=== PATIENT | male | born 1940 | race Caucasian/White ===

== ENCOUNTER 2019-09-05 03:04 | Inpatient (IN) ==
[2019-09-05] MEDS ORDERED: Morphine Sulfate 2 MG/ML SYRINGE IVP ONE (03:09)
[2019-09-05 03:30] LABS: Bilirubin,Urine Negative (Negative); Blood,Urine Negative (Negative); Clarity,Urine Cloudy (Clear); Color,Urine Yellow (Yellow); Glucose,Urine (UA) Normal (Normal); Ketones,Urine Negative (Negative); Leukocyte Esterase,Urine Large (Negative); Nitrite,Urine Negative (Negative); Protein,Urine Negative (Neg-Trace); Specific Gravity,Urine 1.021 (1.010-1.025); Urobilinogen,Urine Normal (Normal)
[2019-09-05 03:32] LABS: Bacteria,Urine Many per hpf (None-Few); Hyaline Casts,Urine Few per lpf (None-Few); Squamous Epithelial Cell,Urine Few per lpf (None-Few); WBC,Urine TNTC per hpf (0-3)
[2019-09-05] MEDS ORDERED: cefTRIAXone 1,000 MG in Water for inj. (sterile) 10 ML IVP ONE (03:35)
[2019-09-05 03:44] LABS: Basophils % 0.4 %; Eosinophils # 0.3 K/mcL (0.0-0.6); Eosinophils % 3.3 %; Hemoglobin 10.6 g/dL (12.9-16.9); Immature Granulocytes % 0.4 % (0-4); Lymphocytes # 1.9 K/mcL (0.6-4.6); Lymphocytes % 20.8 %; Mean Corpuscular HGB Conc 31.2 g/dL (31.6-35.5); Mean Corpuscular Volume 92.9 fL (83.0-100.0); Mean Platelet Volume 9.9 fL (9.4-12.4); Monocytes # 0.7 K/mcL (0.0-1.3); Monocytes % 7.3 %; Platelet Count 243 K/mcL (140-400); Red Blood Count 3.66 M/mcL (4.19-5.50); Segmented Neutrophils % 67.8 %; White Blood Count 8.9 K/mcL (4.3-11.1)
[2019-09-05 04:06] LABS: Alanine Aminotransferase 13 Units/L (7-52); Albumin/Globulin Ratio 1.4 (1.1-2.2); Alkaline Phosphatase 80 Units/L (34-104); Aspartate Amino Transferase 18 Units/L (13-39); BUN/Creatinine Ratio 26 (6-26); Bilirubin,Total 0.4 mg/dL (0.3-1.0); Blood Urea Nitrogen 27 mg/dL (8-23); Calcium 9.3 mg/dL (8.6-10.3); Carbon Dioxide 26 mEq/L (23-29); Chloride 104 mEq/L (98-107); Globulin 2.9 g/dL (2.4-3.5); Glucose 150 mg/dL (70-105); Osmolality,Calculated 296 (280-300); Potassium 3.8 mEq/L (3.5-5.1); Sodium 139 mEq/L (136-145); Total Protein 6.9 g/dL (6.4-8.9); Troponin I < 0.03 ng/mL (< 0.04); eGFR For African Americans > 60 (> 60); eGFR For Non-African Americans > 60 (> 60)
[2019-09-05] MEDS ORDERED: Naloxone 0.4 MG/ML INJ IVP PRN ×3 (04:49→17:23)
[2019-09-05] MEDS ORDERED: Acetaminophen 325 MG TABLET PO PRN (04:49)
[2019-09-05 05:16] LABS: % Iron Saturation 5 % (20-55); Iron 24 mcg/dL (65-175); Magnesium 1.9 mg/dL (1.6-2.6); Phosphorous 3.2 mg/dL (2.7-4.5); Transferrin 318 mg/dL (203-362)
[2019-09-05 05:21] LABS: Prothrombin Time 11.7 Seconds (9.4-12.1)
[2019-09-05] MEDS: 0.9 % Sodium Chloride 1,000 ML IVC SCH (05:22)
[2019-09-05] MEDS ORDERED: *HR* HYDROmorphone (PF) 1 MG/ML SYRINGE IVP ONE (05:27)
[2019-09-05 05:30] LABS: Thyroid Stimulating Hormone 2.224 mcIU/mL (0.340-5.600)
[2019-09-05] MEDS ORDERED: *HR* HYDROmorphone (PF) 1 MG/ML SYRINGE IVP PRN (05:46)
[2019-09-05 05:51] LABS: Folate 18.8 ng/mL (3.0-16.0)
[2019-09-05] MEDS ORDERED: *HR* Heparin 5,000 UNIT/ML VIAL SQ SCH (06:00)
[2019-09-05] MEDS ORDERED: risperiDONE 0.25 MG TABLET PO SCH (09:00)
[2019-09-05] MEDS ORDERED: Cholecalciferol (D-3) 1,000 UNIT (25MCG) TABLET PO SCH (09:00)
[2019-09-05] MEDS ORDERED: Aspirin Enteric Coated 81 MG Tablet PO SCH (09:00)
[2019-09-05] MEDS ORDERED: Famotidine 20 MG TABLET PO SCH (09:00)
[2019-09-05] MEDS ORDERED: Cyanocobalamin (B-12) 1,000 MCG TABLET PO SCH (09:00)
[2019-09-05] MEDS ORDERED: Magnesium Oxide 400 MG TABLET PO SCH (09:00)
[2019-09-05 09:19] LABS: Hematocrit 31.2 % (37.5-50.1); Hemoglobin 9.7 g/dL (12.9-16.9)
[2019-09-05] MEDS ORDERED: *HR* FentaNYL (PF) 100 MCG/2 ML VIAL ONE (14:04)
[2019-09-05] MEDS ORDERED: *HR* Propofol 200 MG/20 ML VIAL IVP ONE (14:04)
[2019-09-05] MEDS ORDERED: Lidocaine -MPF 2% 2 ML VIAL ONE (14:05)
[2019-09-05] MEDS ORDERED: Ondansetron 4 MG/2 ML VIAL ONE (14:06)
[2019-09-05] MEDS ORDERED: Dexamethasone 4 MG/ML VIAL ONE (14:06)
[2019-09-05] MEDS ORDERED: Famotidine 20 MG/2 ML VIAL ONE (14:08)
[2019-09-05] MEDS ORDERED: Acetaminophen IV 1,000 MG/100 ML INFUS..BTL ONE (14:08)
[2019-09-05] MEDS ORDERED: Lidocaine HCL 4 ML Topical Solution (Laryng-O-Jet Kit Sterile Pak) TP ONE (14:16)
[2019-09-05] MEDS ORDERED: Morphine Sulfate 2 MG/ML SYRINGE IVP PRN (14:19)
[2019-09-05] MEDS ORDERED: Ondansetron 4 MG/2 ML VIAL IVP ONE (14:19)
[2019-09-05] MEDS ORDERED: *HR* Labetalol 20 MG/4 ML SYRINGE IVP PRN (14:19)
[2019-09-05] MEDS ORDERED: *HR* Vasopressin 20 UNIT/ML VIAL ONE (14:39)
[2019-09-05 16:48] LABS: Hematocrit 29.1 % (37.5-50.1); Hemoglobin 8.9 g/dL (12.9-16.9)
[2019-09-05] MEDS ORDERED: 0.9 % Sodium Chloride 1,000 ML IVC SCH (17:23)
[2019-09-05] MEDS ORDERED: *HR* HYDROcodone/Acet 10/325 mg TABLET PO PRN (17:23)
[2019-09-05] MEDS ORDERED: *HR* HYDROcodone/Acet 5/325 mg TABLET PO PRN (17:23)
[2019-09-05] MEDS ORDERED: Melatonin 3 MG TABLET PO SCH (21:00)
[2019-09-05] MEDS: Melatonin 3 MG TABLET PO SCH (21:13)
[2019-09-05] MEDS: risperiDONE 0.25 MG TABLET PO SCH (21:14)
[2019-09-05 22:50] LABS: Hematocrit 25.3 % (37.5-50.1)
[2019-09-05] MEDS ORDERED: Acetaminophen IV 1,000 MG/100 ML INFUS..BTL IVPB ONE (23:41)
[2019-09-06 02:27] LABS: Hematocrit 23.6 % (37.5-50.1); Hemoglobin 7.6 g/dL (12.9-16.9)
[2019-09-06] MEDS: 0.9 % Sodium Chloride 1,000 ML IVC SCH (04:00)
[2019-09-06] MEDS ORDERED: cefTRIAXone 1,000 MG in Water for inj. (sterile) 10 ML IVP SCH (04:00)
[2019-09-06] MEDS ORDERED: 0.9 % Sodium Chloride 1,000 ML ONE (04:01)
[2019-09-06 08:30] LABS: Basophils % 0.1 %; Hematocrit 24.9 % (37.5-50.1); Hemoglobin 7.7 g/dL (12.9-16.9); Immature Granulocytes % 0.6 % (0-4); Lymphocytes % 9.9 %; Mean Corpuscular HGB Conc 30.9 g/dL (31.6-35.5); Mean Corpuscular Hemoglobin 29.3 pg (28.0-33.3); Mean Corpuscular Volume 94.7 fL (83.0-100.0); Mean Platelet Volume 9.9 fL (9.4-12.4); Monocytes % 9.8 %; Neutrophils # 8.2 K/mcL (1.6-8.9); Platelet Count 193 K/mcL (140-400); Red Blood Count 2.63 M/mcL (4.19-5.50); Red Cell Distribution Width 14.6 % (11.5-14.5); Segmented Neutrophils % 79.6 %; White Blood Count 10.3 K/mcL (4.3-11.1)
[2019-09-06] MEDS: risperiDONE 0.25 MG TABLET PO SCH ×3 (08:48→21:20)
[2019-09-06] MEDS: Cyanocobalamin (B-12) 1,000 MCG TABLET PO SCH (08:48)
[2019-09-06] MEDS: Magnesium Oxide 400 MG TABLET PO SCH (08:48)
[2019-09-06] MEDS: Famotidine 20 MG TABLET PO SCH (08:48)
[2019-09-06] MEDS: Cholecalciferol (D-3) 1,000 UNIT (25MCG) TABLET PO SCH (08:49)
[2019-09-06 08:51] LABS: BUN/Creatinine Ratio 25 (6-26); Blood Urea Nitrogen 25 mg/dL (8-23); Calcium 8.1 mg/dL (8.6-10.3); Carbon Dioxide 26 mEq/L (23-29); Chloride 108 mEq/L (98-107); Glucose 125 mg/dL (70-105); Osmolality,Calculated 294 (280-300); Potassium 4.1 mEq/L (3.5-5.1); Sodium 139 mEq/L (136-145); eGFR For African Americans > 60 (> 60); eGFR For Non-African Americans > 60 (> 60)
[2019-09-06] MEDS ORDERED: Aspirin Enteric Coated 81 MG Tablet PO SCH (09:00)
[2019-09-06] MEDS: Aspirin Enteric Coated 81 MG Tablet PO SCH (13:16)
[2019-09-06] MEDS ORDERED: Methyl Salicylate/Menthol 28 GM TUBE TP PRN (14:12)
[2019-09-06] MEDS ORDERED: Methyl Salicylate/Menthol 57 APPL/57 GM TUBE TP PRN (14:45)
[2019-09-06 15:15] LABS: Hematocrit 25.1 % (37.5-50.1); Hemoglobin 7.7 g/dL (12.9-16.9)
[2019-09-06] MEDS: Acetaminophen 325 MG TABLET PO SCH ×2 (16:49→21:21)
[2019-09-06] MEDS: Sennosides/Docusate Sodium TABLET PO SCH (21:20)
[2019-09-06] MEDS: Melatonin 3 MG TABLET PO SCH (21:20)
[2019-09-07 01:03] LABS: Basophils % 0.3 %; Eosinophils % 0.4 %; Hematocrit 24.7 % (37.5-50.1); Hemoglobin 7.8 g/dL (12.9-16.9); Lymphocytes # 1.6 K/mcL (0.6-4.6); Lymphocytes % 14.4 %; Mean Corpuscular HGB Conc 31.6 g/dL (31.6-35.5); Mean Platelet Volume 9.8 fL (9.4-12.4); Monocytes # 0.9 K/mcL (0.0-1.3); Monocytes % 8.3 %; Neutrophils # 8.5 K/mcL (1.6-8.9); Platelet Count 192 K/mcL (140-400); Red Cell Distribution Width 14.3 % (11.5-14.5); Segmented Neutrophils % 75.6 %; White Blood Count 11.2 K/mcL (4.3-11.1)
[2019-09-07 01:24] LABS: % Iron Saturation 5 % (20-55); BUN/Creatinine Ratio 24 (6-26); Blood Urea Nitrogen 21 mg/dL (8-23); Calcium 8.5 mg/dL (8.6-10.3); Carbon Dioxide 26 mEq/L (23-29); Chloride 106 mEq/L (98-107); Glucose 121 mg/dL (70-105); Iron 18 mcg/dL (65-175); Osmolality,Calculated 294 (280-300); Potassium 3.8 mEq/L (3.5-5.1); Sodium 140 mEq/L (136-145); Transferrin 239 mg/dL (203-362); eGFR For African Americans > 60 (> 60); eGFR For Non-African Americans > 60 (> 60)
[2019-09-07 01:42] LABS: Ferritin 47 ng/mL (20-250)
[2019-09-07] MEDS: Acetaminophen 325 MG TABLET PO SCH ×3 (06:41→17:19)
[2019-09-07] MEDS: Aspirin Enteric Coated 81 MG Tablet PO SCH (08:26)
[2019-09-07] MEDS: Cholecalciferol (D-3) 1,000 UNIT (25MCG) TABLET PO SCH (08:27)
[2019-09-07] MEDS: Famotidine 20 MG TABLET PO SCH (08:27)
[2019-09-07] MEDS: Cyanocobalamin (B-12) 1,000 MCG TABLET PO SCH (08:28)
[2019-09-07] MEDS: Magnesium Oxide 400 MG TABLET PO SCH (08:28)
[2019-09-07] MEDS: risperiDONE 0.25 MG TABLET PO SCH ×2 (08:28→19:55)
[2019-09-07] MEDS: Sennosides/Docusate Sodium TABLET PO SCH ×2 (08:28→19:54)
[2019-09-07] MEDS: HYDROcodone BIT/Homatropine 5 MG TABLET PO PRN ×2 (08:53→13:07)
[2019-09-07] MEDS: *HR* Enoxaparin 40 MG/0.4 ML SYRINGE SQ SCH (09:41)
[2019-09-07] MEDS: Lactobacillus 1 EACH CAP.SPRINK PO SCH ×2 (12:54→19:52)
[2019-09-07] MEDS: Amoxicillin 500 MG CAPSULE PO SCH ×2 (12:54→19:53)
[2019-09-07] MEDS: Melatonin 3 MG TABLET PO SCH (19:53)
[2019-09-08] MEDS: Acetaminophen 325 MG TABLET PO SCH ×5 (01:03→23:08)
[2019-09-08 04:14] LABS: Basophils # 0.1 K/mcL (0.0-0.2); Basophils % 0.6 %; Eosinophils # 0.1 K/mcL (0.0-0.6); Eosinophils % 1.5 %; Hematocrit 23.3 % (37.5-50.1); Hemoglobin 7.2 g/dL (12.9-16.9); Immature Granulocytes % 1.3 % (0-4); Lymphocytes # 1.3 K/mcL (0.6-4.6); Mean Corpuscular HGB Conc 30.9 g/dL (31.6-35.5); Mean Corpuscular Hemoglobin 29.1 pg (28.0-33.3); Mean Corpuscular Volume 94.3 fL (83.0-100.0); Monocytes # 0.9 K/mcL (0.0-1.3); Monocytes % 9.7 %; Neutrophils # 6.4 K/mcL (1.6-8.9); Platelet Count 187 K/mcL (140-400); Red Blood Count 2.47 M/mcL (4.19-5.50); Red Cell Distribution Width 14.5 % (11.5-14.5); Segmented Neutrophils % 71.9 %
[2019-09-08] MEDS: *HR* Enoxaparin 40 MG/0.4 ML SYRINGE SQ SCH (05:56)
[2019-09-08] MEDS: risperiDONE 0.25 MG TABLET PO SCH ×2 (08:02→23:08)
[2019-09-08] MEDS: Amoxicillin 500 MG CAPSULE PO SCH ×2 (08:02→23:08)
[2019-09-08] MEDS: Aspirin Enteric Coated 81 MG Tablet PO SCH ×2 (08:02→08:32)
[2019-09-08] MEDS: Famotidine 20 MG TABLET PO SCH (08:02)
[2019-09-08] MEDS: Lactobacillus 1 EACH CAP.SPRINK PO SCH ×2 (08:07→23:08)
[2019-09-08] MEDS: Cyanocobalamin (B-12) 1,000 MCG TABLET PO SCH (08:08)
[2019-09-08] MEDS: Cholecalciferol (D-3) 1,000 UNIT (25MCG) TABLET PO SCH (08:08)
[2019-09-08] MEDS: Sennosides/Docusate Sodium TABLET PO SCH ×3 (08:08→23:07)
[2019-09-08] MEDS: Magnesium Oxide 400 MG TABLET PO SCH (08:08)
[2019-09-08 08:35] LABS: Hematocrit 24.5 % (37.5-50.1); Hemoglobin 7.6 g/dL (12.9-16.9)
[2019-09-08] MEDS: polyethylene glycoL 3350 17 GM POWD.PACK PO SCH (10:37)
[2019-09-08] MEDS: Melatonin 3 MG TABLET PO SCH (23:08)
[2019-09-09 01:29] LABS: Basophils % 0.3 %; Eosinophils # 0.1 K/mcL (0.0-0.6); Eosinophils % 1.6 %; Hematocrit 22.4 % (37.5-50.1); Hemoglobin 7.1 g/dL (12.9-16.9); Immature Granulocytes % 1.3 % (0-4); Lymphocytes # 1.4 K/mcL (0.6-4.6); Lymphocytes % 15.2 %; Mean Corpuscular HGB Conc 31.7 g/dL (31.6-35.5); Mean Corpuscular Hemoglobin 29.5 pg (28.0-33.3); Mean Corpuscular Volume 92.9 fL (83.0-100.0); Mean Platelet Volume 10.1 fL (9.4-12.4); Monocytes # 0.8 K/mcL (0.0-1.3); Monocytes % 8.6 %; Neutrophils # 6.5 K/mcL (1.6-8.9); Nucleated Red Blood Cells 0.2 /100 WBC (0); Platelet Count 214 K/mcL (140-400); Red Blood Count 2.41 M/mcL (4.19-5.50); Red Cell Distribution Width 14.2 % (11.5-14.5); White Blood Count 8.9 K/mcL (4.3-11.1)
[2019-09-09] MEDS: Acetaminophen 325 MG TABLET PO SCH ×3 (06:54→18:05)
[2019-09-09] MEDS: *HR* Enoxaparin 40 MG/0.4 ML SYRINGE SQ SCH (06:54)
[2019-09-09] MEDS ORDERED: Ferumoxytol 510 MG in 0.9 % Sodium Chloride 100 ML IVPB ONE (08:34)
[2019-09-09] MEDS: Amoxicillin 500 MG CAPSULE PO SCH ×2 (10:05→22:24)
[2019-09-09] MEDS: Aspirin Enteric Coated 81 MG Tablet PO SCH (10:05)
[2019-09-09] MEDS: risperiDONE 0.25 MG TABLET PO SCH ×2 (10:05→22:24)
[2019-09-09] MEDS: Famotidine 20 MG TABLET PO SCH (10:11)
[2019-09-09] MEDS: Lactobacillus 1 EACH CAP.SPRINK PO SCH ×2 (10:12→22:24)
[2019-09-09] MEDS: Sennosides/Docusate Sodium TABLET PO SCH ×2 (10:12→22:24)
[2019-09-09] MEDS: Cholecalciferol (D-3) 1,000 UNIT (25MCG) TABLET PO SCH (10:18)
[2019-09-09] MEDS: Magnesium Oxide 400 MG TABLET PO SCH (10:18)
[2019-09-09] MEDS: Cyanocobalamin (B-12) 1,000 MCG TABLET PO SCH (10:18)
[2019-09-09] MEDS: polyethylene glycoL 3350 17 GM POWD.PACK PO SCH (10:19)
[2019-09-09 12:29] LABS: Hematocrit 24.8 % (37.5-50.1); Hemoglobin 7.8 g/dL (12.9-16.9)
[2019-09-09] MEDS: HYDROcodone BIT/Homatropine 5 MG TABLET PO PRN (16:35)
[2019-09-09 18:42] LABS: Hematocrit 25.5 % (37.5-50.1); Hemoglobin 7.8 g/dL (12.9-16.9)
[2019-09-09] MEDS: Melatonin 3 MG TABLET PO SCH (22:24)
[2019-09-10 00:28] LABS: Hemoglobin 7.2 g/dL (12.9-16.9)
[2019-09-10] MEDS: Acetaminophen 325 MG TABLET PO SCH ×4 (00:39→17:44)
[2019-09-10 06:05] LABS: Hematocrit 24.7 % (37.5-50.1)
[2019-09-10] MEDS: Magnesium Oxide 400 MG TABLET PO SCH (08:48)
[2019-09-10] MEDS: Amoxicillin 500 MG CAPSULE PO SCH ×2 (08:48→21:00)
[2019-09-10] MEDS: Lactobacillus 1 EACH CAP.SPRINK PO SCH ×2 (08:49→21:01)
[2019-09-10] MEDS: Cyanocobalamin (B-12) 1,000 MCG TABLET PO SCH (08:49)
[2019-09-10] MEDS: Sennosides/Docusate Sodium TABLET PO SCH ×2 (08:49→21:00)
[2019-09-10] MEDS: polyethylene glycoL 3350 17 GM POWD.PACK PO SCH (08:50)
[2019-09-10] MEDS: risperiDONE 0.25 MG TABLET PO SCH ×2 (08:50→21:01)
[2019-09-10] MEDS: Aspirin Enteric Coated 81 MG Tablet PO SCH (08:50)
[2019-09-10] MEDS: Famotidine 20 MG TABLET PO SCH (09:12)
[2019-09-10] MEDS: Cholecalciferol (D-3) 1,000 UNIT (25MCG) TABLET PO SCH (09:14)
[2019-09-10] MEDS: HYDROcodone BIT/Homatropine 5 MG TABLET PO PRN (09:20)
[2019-09-10 12:01] LABS: Hematocrit 25.6 % (37.5-50.1)
[2019-09-10] MEDS: Melatonin 3 MG TABLET PO SCH (21:01)
[2019-09-11] MEDS: Acetaminophen 325 MG TABLET PO SCH ×3 (00:07→11:05)
[2019-09-11] MEDS: HYDROcodone BIT/Homatropine 5 MG TABLET PO PRN (00:07)
[2019-09-11] MEDS: Cholecalciferol (D-3) 1,000 UNIT (25MCG) TABLET PO SCH (08:48)
[2019-09-11] MEDS: Magnesium Oxide 400 MG TABLET PO SCH (08:48)
[2019-09-11] MEDS: Amoxicillin 500 MG CAPSULE PO SCH (08:48)
[2019-09-11] MEDS: Lactobacillus 1 EACH CAP.SPRINK PO SCH (08:48)
[2019-09-11] MEDS: Sennosides/Docusate Sodium TABLET PO SCH (08:48)
[2019-09-11] MEDS: risperiDONE 0.25 MG TABLET PO SCH (08:48)
[2019-09-11] MEDS: Aspirin Enteric Coated 81 MG Tablet PO SCH (08:48)
[2019-09-11] MEDS: Famotidine 20 MG TABLET PO SCH (08:49)
[2019-09-11] MEDS: Cyanocobalamin (B-12) 1,000 MCG TABLET PO SCH (08:49)
[2019-09-11] MEDS: polyethylene glycoL 3350 17 GM POWD.PACK PO SCH (08:49)
[2019-09-11 11:48] VITALS: BP 108/62
== END 2019-09-11 13:16 | DRG 481 ==
LOC: EMEROOARM 03:04 → 3NENU 03:04 → SUATTDRO 04:25 → 3NENU 04:56 → SUATTDRO 13:15 → 3NENU 09-09 16:33
PROVIDERS: ADMIT Internal Medicine; ATTEND Internal Medicine

== ENCOUNTER 2020-01-11 12:38 | Inpatient (IN) ==
[2020-01-11] MEDS ORDERED: Ampicillin/Sulbactam 3,000 MG in 0.9 % Sodium Chloride Mini Bag 100 ML IVPB ONE (13:14)
[2020-01-11 13:29] LABS: Hematocrit 32.8 % (37.5-50.1); Hemoglobin 10.3 g/dL (12.9-16.9); Mean Corpuscular HGB Conc 31.4 g/dL (31.6-35.5); Mean Corpuscular Hemoglobin 28.2 pg (28.0-33.3); Mean Corpuscular Volume 89.9 fL (83.0-100.0); Mean Platelet Volume 9.2 fL (9.4-12.4); Platelet Count 328 K/mcL (140-400); Red Blood Count 3.65 M/mcL (4.19-5.50); Red Cell Distribution Width 16.1 % (11.5-14.5); White Blood Count 6.1 K/mcL (4.3-11.1)
[2020-01-11] MEDS ORDERED: Haloperidol Lactate 5 MG/ML VIAL IM ONE (13:51)
[2020-01-11 13:57] LABS: BUN/Creatinine Ratio 25 (6-26); Blood Urea Nitrogen 19 mg/dL (8-23); Calcium 9.3 mg/dL (8.6-10.3); Carbon Dioxide 32 mEq/L (23-29); Chloride 101 mEq/L (98-107); Glucose 137 mg/dL (70-105); Osmolality,Calculated 294 (280-300); Potassium 4.2 mEq/L (3.5-5.1); Sodium 140 mEq/L (136-145); eGFR For African Americans > 60 (> 60); eGFR For Non-African Americans > 60 (> 60)
[2020-01-11] MEDS ORDERED: Naloxone 0.4 MG/ML INJ IVP PRN (14:53)
[2020-01-11 14:56] LABS: C-Reactive Protein 149 mg/L (Less than 10)
[2020-01-11] MEDS ORDERED: Acetaminophen 325 MG TABLET PO PRN (14:58)
[2020-01-11] MEDS ORDERED: *HR* OxyCODONE Immed Rel 5 MG TABLET PO PRN (14:58)
[2020-01-11] MEDS ORDERED: Bisacodyl 10 MG RECTAL SUPPOSITORY RC PRN (14:58)
[2020-01-11] MEDS ORDERED: Iron Sucrose Complex 200 MG in 0.9 % Sodium Chloride 100 ML IVPB SCH (16:00)
[2020-01-11] MEDS: Baclofen 10 MG TABLET PO SCH ×2 (16:44→20:24)
[2020-01-11] MEDS: risperiDONE 0.25 MG TABLET PO SCH ×2 (17:15→20:24)
[2020-01-11] MEDS: *HR* Heparin 5,000 UNIT/ML VIAL SQ SCH (20:24)
[2020-01-11] MEDS ORDERED: Melatonin 3 MG TABLET PO SCH (21:00)
[2020-01-12 03:07] LABS: Hematocrit 33.4 % (37.5-50.1); Hemoglobin 10.3 g/dL (12.9-16.9); Mean Corpuscular HGB Conc 30.8 g/dL (31.6-35.5); Mean Corpuscular Hemoglobin 27.8 pg (28.0-33.3); Mean Platelet Volume 9.4 fL (9.4-12.4); Platelet Count 352 K/mcL (140-400); Red Blood Count 3.71 M/mcL (4.19-5.50); Red Cell Distribution Width 16.1 % (11.5-14.5); White Blood Count 5.6 K/mcL (4.3-11.1)
[2020-01-12 03:25] LABS: BUN/Creatinine Ratio 24 (6-26); Blood Urea Nitrogen 15 mg/dL (8-23); Calcium 9.2 mg/dL (8.6-10.3); Carbon Dioxide 28 mEq/L (23-29); Chloride 101 mEq/L (98-107); Glucose 103 mg/dL (70-105); Osmolality,Calculated 287 (280-300); Potassium 3.6 mEq/L (3.5-5.1); Sodium 138 mEq/L (136-145); eGFR For African Americans > 60 (> 60); eGFR For Non-African Americans > 60 (> 60)
[2020-01-12 03:44] LABS: Bacteria,Urine Few per hpf (None-Few); Bilirubin,Urine Negative (Negative); Blood,Urine Negative (Negative); Clarity,Urine Turbid (Clear); Color,Urine Yellow (Yellow); Glucose,Urine (UA) Normal (Normal); Ketones,Urine Negative (Negative); Leukocyte Esterase,Urine Negative (Negative); Nitrite,Urine Negative (Negative); Protein,Urine Negative (Neg-Trace); RBC,Urine 0-3 per hpf (0-3); Specific Gravity,Urine 1.016 (1.010-1.025); Squamous Epithelial Cell,Urine Few per hpf (None-Few); Urobilinogen,Urine Normal (Normal); WBC,Urine 0-3 per hpf (0-3)
[2020-01-12] MEDS: *HR* Heparin 5,000 UNIT/ML VIAL SQ SCH ×3 (05:00→21:11)
[2020-01-12] MEDS ORDERED: Vancomycin 1,000 MG, 0.9 % Sodium Chloride 1,000 ML IR ONE ×2 (06:00→19:57)
[2020-01-12] MEDS: Baclofen 10 MG TABLET PO SCH ×4 (07:52→21:11)
[2020-01-12] MEDS: risperiDONE 0.25 MG TABLET PO SCH ×2 (07:53→21:11)
[2020-01-12] MEDS ORDERED: Famotidine 20 MG TABLET PO SCH (09:00)
[2020-01-12] MEDS ORDERED: polyethylene glycoL 3350 17 GM POWD.PACK PO SCH (09:00)
[2020-01-12] MEDS ORDERED: Finasteride 5 MG TABLET PO SCH (09:00)
[2020-01-12] MEDS ORDERED: Aspirin Enteric Coated 81 MG Tablet PO SCH (09:00)
[2020-01-12] MEDS ORDERED: Bupivacaine/EPI 1:200k 0.25%PF 10 ML VIAL INFILT ONE ×2 (12:15→16:44)
[2020-01-12] MEDS ORDERED: QUEtiapine Fumarate 25 MG TABLET PO ONE ×4 (12:28→19:57)
[2020-01-12] MEDS ORDERED: Ziprasidone 10 MG in Water for inj. (sterile) 0.5 ML IM ONE (12:42)
[2020-01-12] MEDS ORDERED: *HR* FentaNYL (PF) 100 MCG/2 ML VIAL ONE ×2 (15:45→18:58)
[2020-01-12] MEDS ORDERED: *HR* Propofol 200 MG/20 ML VIAL IVP ONE (15:45)
[2020-01-12] MEDS ORDERED: Ondansetron 4 MG/2 ML VIAL ONE (15:47)
[2020-01-12] MEDS ORDERED: Lidocaine -MPF 2% 2 ML VIAL ONE (15:47)
[2020-01-12] MEDS ORDERED: Dexamethasone 4 MG/ML VIAL ONE (15:47)
[2020-01-12] MEDS ORDERED: *HR* PHENYLEPHRINE 1,000 MCG/10 ML SYRINGE IVP ONE ×2 (17:22→18:11)
[2020-01-12] MEDS ORDERED: EPHEDrine 50 MG/ML VIAL ONE (17:27)
[2020-01-12] MEDS ORDERED: Bisacodyl 10 MG RECTAL SUPPOSITORY RC PRN (19:57)
[2020-01-12] MEDS ORDERED: *HR* OxyCODONE Immed Rel 5 MG TABLET PO PRN (19:57)
[2020-01-12] MEDS ORDERED: Naloxone 0.4 MG/ML INJ IVP PRN (19:57)
[2020-01-12] MEDS: Melatonin 3 MG TABLET PO SCH (21:11)
[2020-01-12] MEDS: ceFAZolin 2,000 MG in 0.9 % Sodium Chloride 100 ML IVPB SCH (23:55)
[2020-01-13 02:24] LABS: Basophils # 0.1 K/mcL (0.0-0.2); Basophils % 0.5 %; Eosinophils # 0.1 K/mcL (0.0-0.6); Eosinophils % 0.9 %; Hematocrit 32.5 % (37.5-50.1); Hemoglobin 10.3 g/dL (12.9-16.9); Immature Granulocytes % 2.4 % (0-4); Lymphocytes % 8.4 %; Mean Corpuscular HGB Conc 31.7 g/dL (31.6-35.5); Mean Corpuscular Hemoglobin 28.2 pg (28.0-33.3); Mean Platelet Volume 9.8 fL (9.4-12.4); Monocytes # 0.7 K/mcL (0.0-1.3); Monocytes % 6.1 %; Neutrophils # 9.5 K/mcL (1.6-8.9); Nucleated Red Blood Cells 0.4 /100 WBC (0); Platelet Count 355 K/mcL (140-400); Red Blood Count 3.65 M/mcL (4.19-5.50); Segmented Neutrophils % 81.7 %; White Blood Count 11.6 K/mcL (4.3-11.1)
[2020-01-13] MEDS: *HR* Heparin 5,000 UNIT/ML VIAL SQ SCH ×3 (04:54→22:24)
[2020-01-13] MEDS: ceFAZolin 2,000 MG in 0.9 % Sodium Chloride 100 ML IVPB SCH (08:33)
[2020-01-13] MEDS: risperiDONE 0.25 MG TABLET PO SCH ×2 (08:38→22:24)
[2020-01-13] MEDS: Baclofen 10 MG TABLET PO SCH ×3 (08:38→22:24)
[2020-01-13] MEDS: Aspirin Enteric Coated 81 MG Tablet PO SCH (08:39)
[2020-01-13] MEDS: polyethylene glycoL 3350 17 GM POWD.PACK PO SCH (08:40)
[2020-01-13] MEDS: Famotidine 20 MG TABLET PO SCH (08:40)
[2020-01-13] MEDS: Finasteride 5 MG TABLET PO SCH (08:40)
[2020-01-13] MEDS: Acetaminophen 325 MG TABLET PO PRN ×2 (08:45→15:45)
[2020-01-13] MEDS ORDERED: 0.9 % Sodium Chloride 500 ML IVC ONE (10:41)
[2020-01-13] MEDS ORDERED: 0.9 % Sodium Chloride 500 ML ONE (10:44)
[2020-01-13] MEDS: *HR* FentaNYL PATCH 12 MCG PATCH TD SCH (10:55)
[2020-01-13] MEDS ORDERED: *HR* FentaNYL PATCH 12 MCG PATCH TD SCH (11:30)
[2020-01-13] MEDS: 0.9 % Sodium Chloride 500 ML IVC SCH (11:35)
[2020-01-13 12:32] LABS: Amorphous Sediment,Urine Few per hpf (None-Few); Bilirubin,Urine Negative (Negative); Blood,Urine Small (Negative); Budding Yeast,Urine Many per hpf (None Seen); Clarity,Urine Ex.Turbid (Clear); Color,Urine Yellow (Yellow); Glucose,Urine (UA) Normal (Normal); Hyaline Casts,Urine Many per lpf (None Seen); Ketones,Urine Negative (Negative); Leukocyte Esterase,Urine Large (Negative); Mucus,Urine Many per lpf (None-Few); Nitrite,Urine Positive (Negative); PH,Urine 7.5 pH Units (5.0-8.0); Protein,Urine >=300 mg/dL (Neg-Trace); RBC,Urine 50-100 per hpf (0-3); Specific Gravity,Urine 1.026 (1.010-1.025); Urobilinogen,Urine Normal (Normal); WBC,Urine TNTC per hpf (0-3)
[2020-01-13] MEDS: CeFAZolin 2 GM/120 ML BAG IVPB SCH (15:35)
[2020-01-13] MEDS ORDERED: Iron Sucrose Complex 200 MG in 0.9 % Sodium Chloride 100 ML IVPB SCH (16:00)
[2020-01-13] MEDS: Melatonin 3 MG TABLET PO SCH (22:25)
[2020-01-14] MEDS: CeFAZolin 2 GM/120 ML BAG IVPB SCH ×4 (00:01→23:58)
[2020-01-14] MEDS: 0.9 % Sodium Chloride 500 ML IVC SCH ×2 (00:02→10:52)
[2020-01-14 01:34] LABS: Hematocrit 27.7 % (37.5-50.1); Mean Corpuscular Hemoglobin 28.5 pg (28.0-33.3); Mean Corpuscular Volume 91.7 fL (83.0-100.0); Mean Platelet Volume 9.3 fL (9.4-12.4); Platelet Count 283 K/mcL (140-400); Red Blood Count 3.02 M/mcL (4.19-5.50); Red Cell Distribution Width 16.3 % (11.5-14.5); White Blood Count 9.4 K/mcL (4.3-11.1)
[2020-01-14 01:36] LABS: Hemoglobin 8.6 g/dL (12.9-16.9)
[2020-01-14 01:52] LABS: BUN/Creatinine Ratio 20 (6-26); Blood Urea Nitrogen 14 mg/dL (8-23); Calcium 8.4 mg/dL (8.6-10.3); Carbon Dioxide 24 mEq/L (23-29); Chloride 100 mEq/L (98-107); Glucose 116 mg/dL (70-105); Osmolality,Calculated 275 (280-300); Potassium 3.3 mEq/L (3.5-5.1); Sodium 132 mEq/L (136-145); eGFR For African Americans > 60 (> 60); eGFR For Non-African Americans > 60 (> 60)
[2020-01-14] MEDS: *HR* Heparin 5,000 UNIT/ML VIAL SQ SCH ×3 (06:43→23:36)
[2020-01-14] MEDS: Acetaminophen 325 MG TABLET PO PRN ×3 (08:40→23:34)
[2020-01-14] MEDS: Aspirin Enteric Coated 81 MG Tablet PO SCH (08:41)
[2020-01-14] MEDS: Famotidine 20 MG TABLET PO SCH (08:42)
[2020-01-14] MEDS: risperiDONE 0.25 MG TABLET PO SCH ×2 (08:42→23:35)
[2020-01-14] MEDS: Baclofen 10 MG TABLET PO SCH ×3 (08:43→23:35)
[2020-01-14] MEDS: polyethylene glycoL 3350 17 GM POWD.PACK PO SCH (08:44)
[2020-01-14] MEDS: Finasteride 5 MG TABLET PO SCH (08:44)
[2020-01-14] MEDS ORDERED: Ibuprofen 800 MG TABLET PO ONE (20:02)
[2020-01-14] MEDS: Melatonin 3 MG TABLET PO SCH (23:35)
[2020-01-14 23:58] LABS: Adenovirus Not Detected (Not Detect); Bordetella Pertussis Not Detected (Not Detect); Coronavirus 229E Not Detected (Not Detect); Coronavirus HKU1 Not Detected (Not Detect); Coronavirus NL63 Not Detected (Not Detect); Coronavirus OC43 Not Detected (Not Detect); Human Metapneumovirus Not Detected (Not Detect); Human Rhinovirus/Enterovirus Not Detected (Not Detect); Influenza A Subtype 2009 H1 Not Detected (Not Detect); Influenza B Not Detected (Not Detect); Parainfluenza Virus 1 Not Detected (Not Detect); Parainfluenza Virus 2 Not Detected (Not Detect); Parainfluenza Virus 3 Not Detected (Not Detect); Parainfluenza Virus 4 Not Detected (Not Detect); Respiratory Syncytial Virus Not Detected (Not Detect)
[2020-01-14 23:59] LABS: Chlamydophila pneumoniae Not Detected (Not Detect); Mycoplasma pneumoniae Not Detected (Not Detect)
[2020-01-15] MEDS ORDERED: Acetaminophen IV 1,000 MG/100 ML INFUS..BTL IVPB ONE (00:32)
[2020-01-15 01:23] LABS: Basophils % 0.4 %; Hematocrit 27.4 % (37.5-50.1); Hemoglobin 8.7 g/dL (12.9-16.9); Immature Granulocytes % 2.5 % (0-4); Lymphocytes # 0.6 K/mcL (0.6-4.6); Lymphocytes % 7.7 %; Mean Corpuscular HGB Conc 31.8 g/dL (31.6-35.5); Mean Corpuscular Hemoglobin 28.2 pg (28.0-33.3); Mean Platelet Volume 9.5 fL (9.4-12.4); Monocytes # 0.4 K/mcL (0.0-1.3); Monocytes % 5.7 %; Neutrophils # 6.1 K/mcL (1.6-8.9); Platelet Count 281 K/mcL (140-400); Red Blood Count 3.08 M/mcL (4.19-5.50); Red Cell Distribution Width 16.5 % (11.5-14.5); Segmented Neutrophils % 83.7 %; White Blood Count 7.3 K/mcL (4.3-11.1)
[2020-01-15 01:39] LABS: BUN/Creatinine Ratio 11 (6-26); Blood Urea Nitrogen 8 mg/dL (8-23); C-Reactive Protein 192 mg/L (Less than 10); Calcium 8.1 mg/dL (8.6-10.3); Carbon Dioxide 24 mEq/L (23-29); Chloride 98 mEq/L (98-107); Glucose 110 mg/dL (70-105); Osmolality,Calculated 273 (280-300); Potassium 3.1 mEq/L (3.5-5.1); Sodium 132 mEq/L (136-145); eGFR For African Americans > 60 (> 60); eGFR For Non-African Americans > 60 (> 60)
[2020-01-15] MEDS: 0.9 % Sodium Chloride 500 ML IVC SCH ×2 (06:11→16:51)
[2020-01-15] MEDS: *HR* Heparin 5,000 UNIT/ML VIAL SQ SCH ×3 (06:11→20:35)
[2020-01-15] MEDS: CeFAZolin 2 GM/120 ML BAG IVPB SCH (08:55)
[2020-01-15] MEDS: Finasteride 5 MG TABLET PO SCH (08:57)
[2020-01-15] MEDS: Aspirin Enteric Coated 81 MG Tablet PO SCH (08:57)
[2020-01-15] MEDS: Baclofen 10 MG TABLET PO SCH ×3 (08:57→20:35)
[2020-01-15] MEDS: Famotidine 20 MG TABLET PO SCH (08:57)
[2020-01-15] MEDS: risperiDONE 0.25 MG TABLET PO SCH ×2 (08:58→20:35)
[2020-01-15] MEDS: polyethylene glycoL 3350 17 GM POWD.PACK PO SCH (08:58)
[2020-01-15 10:49] LABS: Acinetobacter baumannii by PCR Not Detected (Not Detect); Enterobacter cloacae Cmplx PCR Not Detected (Not Detect); Enterococcus by PCR Not Detected (Not Detect); Escherichia coli by PCR Not Detected (Not Detect); Klebsiella oxytoca by PCR Not Detected (Not Detect); Klebsiella pneumoniae by PCR Not Detected (Not Detect); Staphylococcus aureus by PCR Not Detected (Not Detect); Staphylococcus by PCR Not Detected (Not Detect); Streptococcus agalactiae(B)PCR Not Detected (Not Detect); Streptococcus by PCR Not Detected (Not Detect); Streptococcus pneumoniae PCR Not Detected (Not Detect); Streptococcus pyogenes (A) PCR Not Detected (Not Detect); blaKPC Carbapenem-Resist Gene Not Detected (Not Detect)
[2020-01-15 10:50] LABS: Candida albicans by PCR Not Detected (Not Detect); Candida glabrata by PCR Not Detected (Not Detect); Candida krusei by PCR Not Detected (Not Detect); Candida parapsilosis by PCR Not Detected (Not Detect); Candida tropicalis by PCR Not Detected (Not Detect); Proteus by PCR DETECTED (Not Detect); Pseudomonas aeruginosa by PCR Not Detected (Not Detect); Serratia marcescens by PCR Not Detected (Not Detect)
[2020-01-15] MEDS: cefTRIAXone 2,000 MG in Water for inj. (sterile) 20 ML IVP SCH (18:05)
[2020-01-15] MEDS: Acetaminophen 325 MG TABLET PO PRN (18:11)
[2020-01-15] MEDS: Melatonin 3 MG TABLET PO SCH (20:35)
[2020-01-16] MEDS: 0.9 % Sodium Chloride 500 ML IVC SCH (01:41)
[2020-01-16 04:35] LABS: Hematocrit 27.9 % (37.5-50.1); Mean Corpuscular HGB Conc 32.3 g/dL (31.6-35.5); Mean Corpuscular Hemoglobin 29.1 pg (28.0-33.3); Mean Corpuscular Volume 90.3 fL (83.0-100.0); Mean Platelet Volume 9.3 fL (9.4-12.4); Platelet Count 269 K/mcL (140-400); Red Blood Count 3.09 M/mcL (4.19-5.50); Red Cell Distribution Width 16.8 % (11.5-14.5)
[2020-01-16 04:54] LABS: BUN/Creatinine Ratio 19 (6-26); Blood Urea Nitrogen 11 mg/dL (8-23); Calcium 8.4 mg/dL (8.6-10.3); Carbon Dioxide 27 mEq/L (23-29); Chloride 101 mEq/L (98-107); Glucose 107 mg/dL (70-105); Osmolality,Calculated 278 (280-300); Potassium 3.5 mEq/L (3.5-5.1); Sodium 134 mEq/L (136-145); eGFR For African Americans > 60 (> 60); eGFR For Non-African Americans > 60 (> 60)
[2020-01-16] MEDS: *HR* Heparin 5,000 UNIT/ML VIAL SQ SCH ×3 (05:03→21:31)
[2020-01-16] MEDS: Baclofen 10 MG TABLET PO SCH ×3 (09:56→21:24)
[2020-01-16] MEDS: Aspirin Enteric Coated 81 MG Tablet PO SCH (09:56)
[2020-01-16] MEDS: risperiDONE 0.25 MG TABLET PO SCH ×2 (09:56→21:24)
[2020-01-16] MEDS: Finasteride 5 MG TABLET PO SCH (09:57)
[2020-01-16] MEDS: Famotidine 20 MG TABLET PO SCH (09:57)
[2020-01-16] MEDS: polyethylene glycoL 3350 17 GM POWD.PACK PO SCH (09:58)
[2020-01-16] MEDS: *HR* FentaNYL PATCH 12 MCG PATCH TD SCH (12:19)
[2020-01-16] MEDS: cefTRIAXone 2,000 MG in Water for inj. (sterile) 20 ML IVP SCH (17:38)
[2020-01-16] MEDS: Melatonin 3 MG TABLET PO SCH (21:24)
[2020-01-17] MEDS: Acetaminophen 325 MG TABLET PO PRN (00:29)
[2020-01-17 05:26] LABS: Hematocrit 25.9 % (37.5-50.1); Hemoglobin 8.1 g/dL (12.9-16.9); Mean Corpuscular HGB Conc 31.3 g/dL (31.6-35.5); Mean Corpuscular Hemoglobin 27.9 pg (28.0-33.3); Mean Corpuscular Volume 89.3 fL (83.0-100.0); Mean Platelet Volume 9.4 fL (9.4-12.4); Platelet Count 266 K/mcL (140-400); Red Cell Distribution Width 16.7 % (11.5-14.5); White Blood Count 8.1 K/mcL (4.3-11.1)
[2020-01-17 05:47] LABS: BUN/Creatinine Ratio 18 (6-26); Blood Urea Nitrogen 12 mg/dL (8-23); Calcium 8.3 mg/dL (8.6-10.3); Carbon Dioxide 28 mEq/L (23-29); Chloride 98 mEq/L (98-107); Glucose 122 mg/dL (70-105); Osmolality,Calculated 273 (280-300); Potassium 3.5 mEq/L (3.5-5.1); Sodium 131 mEq/L (136-145); eGFR For African Americans > 60 (> 60); eGFR For Non-African Americans > 60 (> 60)
[2020-01-17] MEDS: *HR* Heparin 5,000 UNIT/ML VIAL SQ SCH ×2 (06:02→16:37)
[2020-01-17] MEDS: Baclofen 10 MG TABLET PO SCH ×3 (09:30→21:45)
[2020-01-17] MEDS: polyethylene glycoL 3350 17 GM POWD.PACK PO SCH (09:30)
[2020-01-17] MEDS: Famotidine 20 MG TABLET PO SCH (09:30)
[2020-01-17] MEDS: risperiDONE 0.25 MG TABLET PO SCH ×2 (09:30→21:45)
[2020-01-17] MEDS: Aspirin Enteric Coated 81 MG Tablet PO SCH (09:30)
[2020-01-17] MEDS: Finasteride 5 MG TABLET PO SCH (09:30)
[2020-01-17] MEDS: cefTRIAXone 2,000 MG in Water for inj. (sterile) 20 ML IVP SCH (16:37)
[2020-01-17] MEDS ORDERED: *HR* Rivaroxaban 10 MG TABLET PO SCH (17:00)
[2020-01-17] MEDS: Melatonin 3 MG TABLET PO SCH (21:45)
[2020-01-18] MEDS: *HR* Heparin 5,000 UNIT/ML VIAL SQ SCH ×2 (05:42→19:48)
[2020-01-18 06:39] LABS: Basophils % 0.3 %; Eosinophils % 0.2 %; Hematocrit 26.5 % (37.5-50.1); Hemoglobin 8.4 g/dL (12.9-16.9); Immature Granulocytes % 1.6 % (0-4); Lymphocytes # 1.2 K/mcL (0.6-4.6); Lymphocytes % 13.3 %; Mean Corpuscular HGB Conc 31.7 g/dL (31.6-35.5); Mean Corpuscular Hemoglobin 28.8 pg (28.0-33.3); Mean Corpuscular Volume 90.8 fL (83.0-100.0); Mean Platelet Volume 9.5 fL (9.4-12.4); Monocytes # 0.8 K/mcL (0.0-1.3); Monocytes % 9.1 %; Neutrophils # 6.8 K/mcL (1.6-8.9); Platelet Count 246 K/mcL (140-400); Red Blood Count 2.92 M/mcL (4.19-5.50); Red Cell Distribution Width 16.8 % (11.5-14.5); Segmented Neutrophils % 75.5 %
[2020-01-18 06:58] LABS: BUN/Creatinine Ratio 19 (6-26); Blood Urea Nitrogen 12 mg/dL (8-23); Calcium 8.7 mg/dL (8.6-10.3); Carbon Dioxide 30 mEq/L (23-29); Chloride 99 mEq/L (98-107); Glucose 119 mg/dL (70-105); Osmolality,Calculated 279 (280-300); Potassium 3.7 mEq/L (3.5-5.1); Sodium 134 mEq/L (136-145); eGFR For African Americans > 60 (> 60); eGFR For Non-African Americans > 60 (> 60)
[2020-01-18] MEDS: Aspirin Enteric Coated 81 MG Tablet PO SCH (07:51)
[2020-01-18] MEDS: polyethylene glycoL 3350 17 GM POWD.PACK PO SCH (07:51)
[2020-01-18] MEDS: Famotidine 20 MG TABLET PO SCH (07:51)
[2020-01-18] MEDS: Baclofen 10 MG TABLET PO SCH ×3 (07:51→19:47)
[2020-01-18] MEDS: Finasteride 5 MG TABLET PO SCH (07:51)
[2020-01-18] MEDS: risperiDONE 0.25 MG TABLET PO SCH ×2 (07:52→19:47)
[2020-01-18] MEDS: cefTRIAXone 2,000 MG in Water for inj. (sterile) 20 ML IVP SCH (19:47)
[2020-01-18] MEDS: Melatonin 3 MG TABLET PO SCH (19:47)
[2020-01-18] MEDS: 0.9 % Sodium Chloride 500 ML IVC SCH ×2 (22:04→22:05)
[2020-01-19] MEDS: *HR* Heparin 5,000 UNIT/ML VIAL SQ SCH ×2 (04:17→18:54)
[2020-01-19] MEDS: Finasteride 5 MG TABLET PO SCH (07:35)
[2020-01-19] MEDS: Famotidine 20 MG TABLET PO SCH (07:35)
[2020-01-19] MEDS: Aspirin Enteric Coated 81 MG Tablet PO SCH (07:35)
[2020-01-19] MEDS: risperiDONE 0.25 MG TABLET PO SCH ×2 (07:35→21:37)
[2020-01-19] MEDS: Baclofen 10 MG TABLET PO SCH ×2 (07:36→21:37)
[2020-01-19] MEDS: polyethylene glycoL 3350 17 GM POWD.PACK PO SCH (07:36)
[2020-01-19] MEDS ORDERED: Bupivacaine/EPI 1:200k 0.25%PF 30 ML VIAL ONE (15:33)
[2020-01-19] MEDS ORDERED: Lidocaine -MPF 2% 2 ML VIAL ONE (15:37)
[2020-01-19] MEDS ORDERED: Dexamethasone 4 MG/ML VIAL ONE (15:37)
[2020-01-19] MEDS ORDERED: Ondansetron 4 MG/2 ML VIAL ONE (15:37)
[2020-01-19] MEDS ORDERED: *HR* FentaNYL (PF) 100 MCG/2 ML VIAL ONE (15:38)
[2020-01-19] MEDS ORDERED: *HR* Propofol 200 MG/20 ML VIAL IVP ONE (15:38)
[2020-01-19] MEDS ORDERED: Haloperidol Lactate 5 MG/ML VIAL IVP ONE (15:57)
[2020-01-19] MEDS ORDERED: Ondansetron 4 MG/2 ML VIAL IVP PRN ×2 (16:39→17:56)
[2020-01-19] MEDS ORDERED: *HR* Labetalol 20 MG/4 ML SYRINGE IVP PRN ×2 (16:39→17:56)
[2020-01-19] MEDS ORDERED: *HR* FentaNYL (PF) 100 MCG/2 ML VIAL IVP PRN ×2 (16:46→17:56)
[2020-01-19] MEDS ORDERED: Naloxone 0.4 MG/ML INJ IVP PRN (17:56)
[2020-01-19] MEDS ORDERED: Bisacodyl 10 MG RECTAL SUPPOSITORY RC PRN (17:56)
[2020-01-19] MEDS ORDERED: *HR* OxyCODONE Immed Rel 5 MG TABLET PO PRN (17:56)
[2020-01-19] MEDS: Melatonin 3 MG TABLET PO SCH (21:37)
[2020-01-19] MEDS: *HR* FentaNYL PATCH 12 MCG PATCH TD SCH (21:38)
[2020-01-20] MEDS: *HR* Heparin 5,000 UNIT/ML VIAL SQ SCH ×2 (04:24→18:29)
[2020-01-20] MEDS ORDERED: Aspirin Enteric Coated 81 MG Tablet PO SCH (09:00)
[2020-01-20] MEDS: polyethylene glycoL 3350 17 GM POWD.PACK PO SCH (09:53)
[2020-01-20] MEDS: Finasteride 5 MG TABLET PO SCH (09:53)
[2020-01-20] MEDS: Baclofen 10 MG TABLET PO SCH ×3 (09:53→22:03)
[2020-01-20] MEDS: Famotidine 20 MG TABLET PO SCH (09:53)
[2020-01-20] MEDS: risperiDONE 0.25 MG TABLET PO SCH ×3 (09:54→22:03)
[2020-01-20] MEDS ORDERED: Haloperidol Lactate 5 MG/ML VIAL IVP PRN (12:37)
[2020-01-20] MEDS: cefTRIAXone 2,000 MG in Water for inj. (sterile) 20 ML IVP SCH (17:22)
[2020-01-20] MEDS: Melatonin 3 MG TABLET PO SCH (22:03)
[2020-01-20] MEDS: Acetaminophen 325 MG TABLET PO PRN (22:31)
[2020-01-21] MEDS: *HR* Heparin 5,000 UNIT/ML VIAL SQ SCH ×2 (05:34→17:43)
[2020-01-21] MEDS: polyethylene glycoL 3350 17 GM POWD.PACK PO SCH (09:29)
[2020-01-21] MEDS: Acetaminophen 325 MG TABLET PO PRN (09:29)
[2020-01-21] MEDS: Famotidine 20 MG TABLET PO SCH (09:30)
[2020-01-21] MEDS: Baclofen 10 MG TABLET PO SCH ×3 (09:31→19:54)
[2020-01-21] MEDS: Finasteride 5 MG TABLET PO SCH (09:31)
[2020-01-21] MEDS: risperiDONE 0.25 MG TABLET PO SCH ×2 (09:31→19:54)
[2020-01-21] MEDS: cefTRIAXone 2,000 MG in Water for inj. (sterile) 20 ML IVP SCH (17:42)
[2020-01-21] MEDS: Melatonin 3 MG TABLET PO SCH (19:54)
[2020-01-22] MEDS: *HR* Heparin 5,000 UNIT/ML VIAL SQ SCH (05:03)
[2020-01-22 09:41] VITALS: BP 120/70
[2020-01-22] MEDS: risperiDONE 0.25 MG TABLET PO SCH (09:48)
[2020-01-22] MEDS: Baclofen 10 MG TABLET PO SCH (09:48)
[2020-01-22] MEDS: Finasteride 5 MG TABLET PO SCH (09:48)
[2020-01-22] MEDS: polyethylene glycoL 3350 17 GM POWD.PACK PO SCH (09:49)
[2020-01-22] MEDS: Famotidine 20 MG TABLET PO SCH (09:49)
[2020-01-22] MEDS ORDERED: *HR* FentaNYL PATCH 12 MCG PATCH TD SCH (11:30)
== END 2020-01-22 13:18 | disposition other institution (70) | DRG 463 ==
LOC: EMEROOARM 12:38 → 3NENU 12:38 → SUATTDRO 15:04 → 3NENU 15:07
PROVIDERS: ADMIT Internal Medicine; ATTEND Internal Medicine